=== PATIENT | male | born 1985 | race Caucasian/White ===

== ENCOUNTER → 2016-05-05 | Outpatient (CLI) | payer OTHER ==
--- NOTE | 2016-05-05 13:05 | KCIC ---
Ultrasound abdomen limited Indication: Right-sided abdominal pain. The liver is normal in size. There is increased echogenicity consistent with fatty infiltration. No discrete liver mass is detected. The gallbladder is without stones. No wall thickening or pericholecystic fluid is identified. No bile duct dilatation is seen. The right kidney is unremarkable. The pancreatic body and tail were poorly visualized. The IVC is not well visualized. The aorta is not aneurysmal. No ascites is identified. Images of the right lower quadrant are unremarkable. Impression: Fatty infiltration of the liver. No other significant abnormality is detected. Electronically signed by: Gaston Castellanos MD (May 05, 2016 13:04:24)
== END | disposition home or self-care (01) ==
LOC: KCIC US 08:58
PROVIDERS: ATTEND Family Medicine
DX: R10.9 Unspecified abdominal pain (principal); R14.0 Abdominal distension (gaseous)
CPT/HCPCS: 76705